=== PATIENT | female | born 1975 | race Caucasian/White ===

== ENCOUNTER 2023-11-01 11:27 | Emergency (ER) | payer OTHER ==
--- NOTE | 2023-11-01 12:12 | XRAY Report ---
PROCEDURE: Chest 2V INDICATIONS: Cough TECHNIQUE: 2 views of the chest were acquired. COMPARISON: None. FINDINGS: Surgical changes and devices: None. Lungs and pleura: No pleural effusions or pneumothorax. Lungs are clear. Mediastinum: Mediastinal contours appear normal. Heart size is normal. Bones and chest wall: No suspicious bony lesions. Overlying soft tissues appear unremarkable. IMPRESSION: No acute cardiopulmonary process. Reviewed by: Parvez Mckeon MD on 11/01/2023 12:11 PM PDT Approved by: Parvez Mckeon MD on 11/01/2023 12:11 PM PDT Station ID: [id number]
[2023-11-01 12:50] LABS: B. PARAPERTUSSIS- RESP PCR PAN NOT DETECTED; CORONAVIRUS 229E-RESP PCR NOT DETECTED; CORONAVIRUS HKU1-RESP PCR NOT DETECTED; CORONAVIRUS NL63-RESP PCR NOT DETECTED; CORONAVIRUS OC43-RESP PCR NOT DETECTED; HUMAN METAPNEUMOVIRUS NOT DETECTED; INFLUENZA A- RESP PCR PANEL NOT DETECTED; INFLUENZA B - RESP PCR PANEL NOT DETECTED; PARAINFLUENZA VIRUS 1 NOT DETECTED; PARAINFLUENZA VIRUS 2 NOT DETECTED; PARAINFLUENZA VIRUS 3 NOT DETECTED; PARAINFLUENZA VIRUS 4 NOT DETECTED; RHINOVIRUS/ENTEROVIRUS NOT DETECTED; RSV- RESP PCR PANEL NOT DETECTED; SARS-CoV-2 -RESP PCR PANEL NOT DETECTED
[2023-11-01 12:51] LABS: B. PERTUSSIS- RESP PCR PANEL NOT DETECTED; C. PNEUMONIAE- RESP PCR PANEL NOT DETECTED; M. PNEUMONIAE- RESP PCR PANEL NOT DETECTED
--- NOTE | 2023-11-01 14:55 | ED Physician Documentation ---
PD HPI CHEST PAIN - Stated complaint Stated Complaint: CP/SOA/COUGH - Chief complaint Chief Complaint: Resp - Additional information Additional information: 47-year-old female with history of [place] virus, pneumonia, bronchitis presents emergency department for about 1-1/2 weeks of feeling generalized malaise and unwell. Patient says that she started to notice last couple days more increased shortness of breath and chest pain with inhalation and exertional activity. She says she is also noticing more chest pain after coughing fits and coughing episodes also coughing up blood. Unsure when her last fever has been., PD PAST MEDICAL HISTORY - Past Medical History Past Medical History: Yes Other Past Medical History: EBV - Past Surgical History /MEDICAL PROFESSIONALS: section - Present Medications Home Medications: Ambulatory Orders Medication Instructions Recorded Confirmed Albuterol Sulf [Ventolin Hfa 1 - 2 puffs INH Q4HR #1 each 11/01/23 Inhaler] Benzonatate [Tessalon] 100 mg PO TID #30 cap 11/01/23 - Allergies Allergies/Adverse Reactions: Allergies Allergy/AdvReac Type Severity Reaction Status Date / Time shellfish derived Allergy Anaphylaxis Verified 11/01/23 11:36 codeine AdvReac Nausea Verified 11/01/23 11:36 - Social History Does the pt smoke?: No Smoking Status: Never smoker Does the pt drink ETOH?: No Does the pt have substance abuse?: No - Immunizations Immunizations are current?: Yes PD ED PE NORMAL - Vitals Vital signs reviewed: Yes - General General: Alert and oriented X 3, No acute distress, Well developed/nourished - HEENT HEENT: Atraumatic, PERRL - Neck Neck: Supple, no meningeal sign - Cardiac Cardiac: RRR, No murmur, No gallop, Strong equal pulses - Respiratory Respiratory: No respiratory distress, Clear bilaterally - Derm Derm: Normal color, Warm and dry, No rash - Extremities Extremities: No edema, No calf tenderness / cord - Psych Psych: Normal mood Results - Vitals Vitals: Vital Signs - 24 hr 11/01/23 11/01/23 11:33 16:05 Temperature 36.7 C Heart Rate 101 H 72 Respiratory 16 18 Rate Blood Pressure 115/84 H 132/82 H O2 Saturation 99 98 Oxygen O2 Source Room air - EKG (time done) 1503 EKG releavant findings:: EKG personally interpreted by author of this note. Relevant findings are: Rate: Rate (enter#) (81) Rhythm: NSR [place]: Normal Intervals: Normal MO QRS: Normal Ischemia: Normal ST segments Computer interpretation: Agree with computer - Labs Labs: Laboratory Tests 11/01/23 11/01/23 11/01/23 11:38 15:17 15:17 WBC 15.1 H RBC 3.94 L Hgb 12.5 Hct 37.5 MCV 95.2 MCH 31.7 H MCHC 33.3 RDW 11.2 L Plt Count 286 MPV 9.6 Neut # (Auto) 12.4 H Lymph # (Auto) 1.9 Crisp # (Auto) 0.8 Eos # (Auto) 0.0 Baso # (Auto) 0.0 Absolute Nucleated RBC 0.00 Nucleated RBC % 0.0 D-Dimer < 200.0 L Sodium Potassium Chloride Carbon Dioxide Anion Gap BUN Creatinine Estimated GFR (MDRD) Glucose Calcium Total Bilirubin AST ALT Alkaline Phosphatase Troponin I High Sens Total Protein Albumin Globulin Albumin/Globulin Ratio Lipase Nasal Adenovirus (PCR) NOT DETECTED Nasal B. parapertussis DNA (PCR) NOT DETECTED Nasal Coronavir 229E PCR NOT DETECTED Nasal Coronavir HKU1 PCR NOT DETECTED Nasal Coronavir NL63 PCR NOT DETECTED Nasal Coronavir OC43 PCR NOT DETECTED Nasal Enterovir/Rhinovir PCR NOT DETECTED Nasal Influenza B PCR NOT DETECTED Nasal Influenza A PCR NOT DETECTED Nasal Parainfluen 1 PCR NOT DETECTED Nasal Parainfluen 2 PCR NOT DETECTED Nasal Parainfluen 3 PCR NOT DETECTED Nasal Parainfluen 4 PCR NOT DETECTED Nasal RSV (PCR) NOT DETECTED Nasal B.pertussis DNA PCR NOT DETECTED Nasal C.pneumoniae (PCR) NOT DETECTED Seth Human Metapneumo PCR NOT DETECTED Nasal M.pneumoniae (PCR) NOT DETECTED Nasal SARS-CoV-2 (PCR) NOT DETECTED 11/01/23 15:17 WBC RBC Hgb Hct MCV MCH MCHC RDW Plt Count MPV Neut # (Auto) Lymph # (Auto) Crisp # (Auto) Eos # (Auto) Baso # (Auto) Absolute Nucleated RBC Nucleated RBC % D-Dimer Sodium 136 Potassium 3.9 Chloride 103 Carbon Dioxide 28 Anion Gap 5.0 L BUN 8 Creatinine 0.7 Estimated GFR (MDRD) 90 Glucose 91 Calcium 9.4 Total Bilirubin 0.3 AST 14 ALT 13 Alkaline Phosphatase 62 Troponin I High Sens < 2.3 L Total Protein 6.8 Albumin 4.4 Globulin 2.4 Albumin/Globulin Ratio 1.8 Lipase 16 Nasal Adenovirus (PCR) Nasal B. parapertussis DNA (PCR) Nasal Coronavir 229E PCR Nasal Coronavir HKU1 PCR Nasal Coronavir NL63 PCR Nasal Coronavir OC43 PCR Nasal Enterovir/Rhinovir PCR Nasal Influenza B PCR Nasal Influenza A PCR Nasal Parainfluen 1 PCR Nasal Parainfluen 2 PCR Nasal Parainfluen 3 PCR Nasal Parainfluen 4 PCR Nasal RSV (PCR) Nasal B.pertussis DNA PCR Nasal C.pneumoniae (PCR) Seth Human Metapneumo PCR Nasal M.pneumoniae (PCR) Nasal SARS-CoV-2 (PCR) - Rads (name of study) Chest x-ray Relevant Findings:: Final report received, EMP independent interpretation of test, Other (No acute cardiopulmonary abnormalities) PD Medical Decision Making - ED course ED course: 47-year-old female presents emergency department for persistent cough and concerns of chest pain. Patient has been feeling ill now for about a week her concerns are pneumonia versus bronchitis which are things that she has had in the past. Chest x-ray was complete for further evaluation which does not reveal any acute cardiopulmonary abnormalities or findings make me less suspicious of possible pneumonia. To rule out acute coronary syndrome as well as possible D- dimer given that patient was complaining of worsening chest pain with any sort of exertional activity D-dimer was checked and it was found to be negative as well as negative troponin. She was found to have some leukocytosis, WBC 15.1 no anemia or other electrolyte abnormalities or findings. Respiratory swab was also found to be negative. At this point in time due to process of illumination I do believe that patient is experiencing bronchitis. She also reports that she has her son's albuterol inhaler at home which is found to be quite helpful for her symptoms of bronchitis so a prescription was sent to her preferred pharmacy for her to have her own inhaler. Patient told year return precautions told to follow-up with primary care provider all questions answered patient is safe for discharge. Departure - Departure Disposition: 01 Home, Self Care Clinical Impression: Bronchitis Instructions: Bronchitis Acute Dc Prescriptions: Albuterol Sulf [Ventolin Hfa Inhaler] 1 - 2 puffs INH Q4HR #1 each Benzonatate [Tessalon] 100 mg PO TID #30 cap Comments: Thank you for trusting us with your care we have completed chest x-ray as well as EKG and other labs and I am not seeing any acute abnormalities or findings at this point in time. Please follow-up with your primary care provider for further evaluation I have sent a prescription of Tessalon Perles to help with your persistent cough as well as an albuterol inhaler for yourself but this seems to be helping with your bronchitis. Please come back and if you are developing any worsening shortness of breath, chest pain or any other concerning emergent symptoms. Forms: PCP List Discharge Date/Time: 11/01/23 16:05
[2023-11-01 15:21] LABS: BASOPHILS % (AUTO) 0.2 %; EOSINOPHILS % (AUTO) 0.1 %; HCT - HEMATOCRIT 37.5 % (37.0-47.0); HGB - HEMOGLOBIN 12.5 g/dL (12.0-16.0); LYMPHOCYTES # (AUTO) 1.9 10^3/uL (1.5-3.5); LYMPHOCYTES % (AUTO) 12.4 %; MEAN CORPUSCULAR HEMOGLOBIN 31.7 pg (27.0-31.0); MEAN CORPUSCULAR HGB CONC 33.3 g/dL (32.0-36.0); MEAN CORPUSCULAR VOLUME 95.2 fL (81.0-99.0); MEAN PLATELET VOLUME 9.6 fL (7.9-10.8); MONOCYTES # (AUTO) 0.8 10^3/uL (0.0-1.0); NEUTROPHILS # (AUTO) 12.4 10^3/uL (1.5-6.6); PLT - PLATELET COUNT 286 10^3/uL (130-450); RED BLOOD COUNT 3.94 10^6/uL (4.20-5.40); RED CELL DISTRIBUTION WIDTH 11.2 % (12.0-15.0); WHITE BLOOD COUNT 15.1 x10^3/uL (4.8-10.8)
[2023-11-01 15:44] LABS: ALBUMIN 4.4 g/dL (3.2-5.5); ALBUMIN/GLOBULIN RATIO 1.8 (1.0-2.2); ALKALINE PHOSPHATASE 62 IU/L (42-121); ALT ALANINE AMINOTRANSFERASE 13 IU/L (10-60); AST ASPARTATE AMINOTRANSFERASE 14 IU/L (10-42); BILIRUBIN,TOTAL 0.3 mg/dL (0.2-1.0); BUN - BLOOD UREA NITROGEN 8 mg/dL (6-20); CALCIUM 9.4 mg/dL (8.5-10.3); CARBON DIOXIDE - CO2 28 mmol/L (21-32); CHLORIDE 103 mmol/L (101-111); CREATININE 0.7 mg/dL (0.6-1.3); GFR - MDRD 90 (>89); GLUCOSE 91 mg/dL (74-104); LIPASE 16 U/L (11-82); POTASSIUM 3.9 mmol/L (3.5-4.5); SODIUM 136 mmol/L (135-145); TOTAL PROTEIN 6.8 g/dL (6.4-8.9)
[2023-11-01 15:47] LABS: TROPONIN I HIGH SENSITIVITY < 2.3 ng/L (2.3-14.8)
[2023-11-01 16:10] VITALS: BP 132/82; O2SAT 98
== END 2023-11-01 16:05 | disposition home or self-care (01) ==
LOC: ED 11:27
DX: J40 Bronchitis, not specified as acute or chronic (principal)
CPT/HCPCS: 36415; 80053; 83690; 84484; 85025; 85379; 87633; 93005; 99284

== ENCOUNTER 2024-01-14 07:02 | Outpatient (CLI) | payer OTHER | END 2024-01-14 07:03 | disposition home or self-care (01) | LOC: RT 07:02 | PROVIDERS: ATTEND Acupuncturist | DX: R07.9 Chest pain, unspecified (principal); Z86.16 Personal history of COVID-19 | CPT/HCPCS: 93005 ==